=== PATIENT | female | born 1940 | race Caucasian/White ===

== ENCOUNTER → 2019-09-05 16:14 | Outpatient (CLI) | payer MEDICARE, OTHER, SELFPAY ==
[2019-09-05 17:48] LABS: Cancer Antigen 125 8.5 U/mL (0-35)
[2019-09-07 11:09] LABS: Human Epididymis Prot 4 62.8 pmol/L (0.0-96.9)
== END ==
PROVIDERS: PCP Family Medicine Adult Medicine; Referring Provider Specialist; Visit Provider Specialist
DX: R19.09 Other intra-abdominal and pelvic swelling, mass and lump (principal)
CPT/HCPCS: 36415; 86304; 86305

== ENCOUNTER → 2020-10-08 14:57 | Outpatient (CLI) | payer MEDICARE, OTHER, SELFPAY ==
--- NOTE | 2020-10-08 14:58 | DI.CT.S_ITS ---
PROCEDURE: CT PELVIS W CON INDICATIONS: Ovarian Mass TECHNIQUE: After the administration of intravenous contrast, 5 mm thick sections acquired from the iliac crests to the symphysis. 5 mm coronal and sagittal reformats were acquired. For radiation dose reduction, the following was used: automated exposure control, adjustment of mA and/or kV according to patient size. COMPARISON: [facility], CT, CT ABDOMEN PELVIS WITHOUT CONTRAST, 03/08/2018, 14:53. [facility]ound, US, US PELVIC COMPLETE WITH TRANSVAGINAL, 01/31/2020, 12:46. FINDINGS: Image quality: Excellent. Peritoneum and bowel: Bowel loops demonstrate normal wall thickness and caliber. There are scattered colonic diverticula. No CT findings to suggest acute diverticulitis. No free fluid or air. Genitourinary: Bladder wall thickness is normal. Note is made of postmenopausal uterus. There is a bilobed cyst in the left pelvic sidewall measuring 2.0 x 4.4 cm. In the contralateral right pelvis, there is a cyst measuring 1.7 x 3.1 cm. Nodes and vessels: No iliac, pelvic, or inguinal adenopathy by size criteria. Iliac vessels demonstrate normal size and enhancement. Moderate atherosclerotic calcifications. Bones: No suspicious bony lesions. There is trace anterolisthesis of L5 on S1. Degenerative disc and facet disease in lumbar spine. Miscellaneous: No inguinal hernias. IMPRESSION: 1. Bilateral ovarian cysts are present measuring 2.0 x 4.4 cm on the left and 1.7 x 3.1 cm on the right. Recommend sonographic follow-up. 2. Postmenopausal uterus. 3. Diverticulosis without diverticulitis. Dictated by: Frankie Gamez M.D. on 10/08/2020 at 16:53 Approved by: Frankie Gamez M.D. on 10/08/2020 at 17:03
== END ==
PROVIDERS: PCP Family Medicine; Referring Provider Specialist; Visit Provider Specialist
DX: N83.8 Other noninflammatory disorders of ovary, fallopian tube and broad ligament (principal); N83.202 Unspecified ovarian cyst, left side; N83.201 Unspecified ovarian cyst, right side; K57.90 Diverticulosis of intestine, part unspecified, without perforation or abscess without bleeding
CPT/HCPCS: 72193

== ENCOUNTER → 2021-05-07 13:34 | Outpatient (CLI) | payer MEDICARE, OTHER, SELFPAY ==
[2021-05-07 15:34] LABS: Cancer Antigen 125 9.4 U/mL (0-35)
[2021-05-09 09:40] LABS: Human Epididymis Prot 4 42.6 pmol/L (0.0-96.9)
== END ==
PROVIDERS: PCP Family Medicine; Referring Provider Specialist; Visit Provider Specialist
DX: N83.201 Unspecified ovarian cyst, right side (principal); N83.202 Unspecified ovarian cyst, left side
CPT/HCPCS: 36415; 86304; 86305

== ENCOUNTER → 2022-02-23 14:19 | Outpatient (CLI) | payer MEDICARE, OTHER, SELFPAY ==
--- NOTE | 2022-02-23 14:22 | DI.US.S_ITS ---
PROCEDURE: US PELVIC COMPLETE INDICATIONS: OVARIAN CYSTS TECHNIQUE: Real-time scanning was performed of the pelvic organs, with image documentation. Additional endovaginal scanning was necessary due to incomplete visualization of the adnexal and endometrial structures by transabdominal scanning. COMPARISON: None. FINDINGS: The uterine body measures 2.4 x 4.0 x 4.5 cm. Normal endometrial thickness. No uterine mass. Multiple simple cysts in both, 3 in the right ovary largest measuring the 2.1 cm. Two simple cysts in the left ovary measures 3.3 x 2.6 x 2.7 cm and 2.4 x 2.12.3 cm. IMPRESSION: Multiple simple cysts in both ovaries. We strive to produce accurate, complete, and clear reports of imaging services. To assist us in improving patient care, this report was composed using standard report templates and voice recognition software. Therefore, it may contain abnormal punctuation, insertions and/or omissions. Occasional wrong-word or sound-alike substitutions may occur. Though we review the report and make efforts to correct it, we do recommend that the report be read carefully in proper context to recognize any text inaccuracies. Dictated by: Janes Donis M.D. on 02/23/2022 at 14:56 Approved by: Janes Donis M.D. on 02/23/2022 at 14:57
== END ==
PROVIDERS: PCP Family Medicine; Referring Provider Obstetrics & Gynecology; Visit Provider Obstetrics & Gynecology
DX: N83.291 Other ovarian cyst, right side (principal); N83.292 Other ovarian cyst, left side
CPT/HCPCS: 76830; 76856